=== PATIENT | female | born 1940 | race Two or more races ===

== ENCOUNTER 2018-07-26 13:17 | Outpatient (CLI) | payer OTHER | END 2018-07-26 13:31 | disposition home or self-care (01) | LOC: RAD 501 13:17 | DX: M41.9 Scoliosis, unspecified (principal); M25.571 Pain in right ankle and joints of right foot; M25.572 Pain in left ankle and joints of left foot; M51.36 Other intervertebral disc degeneration, lumbar region; M48.02 Spinal stenosis, cervical region ==

== ENCOUNTER 2018-07-28 11:34 | Outpatient (CLI) | payer OTHER | END 2018-07-28 11:45 | disposition home or self-care (01) | LOC: RAD 501 11:34 | DX: M25.572 Pain in left ankle and joints of left foot (principal) ==

== ENCOUNTER → 2018-09-20 | Outpatient (CLI) | payer OTHER | END | disposition home or self-care (01) | LOC: NUCLEAR 10:00 | DX: M41.9 Scoliosis, unspecified (principal); M48.02 Spinal stenosis, cervical region; M51.26 Other intervertebral disc displacement, lumbar region; M85.80 Other specified disorders of bone density and structure, unspecified site; M81.0 Age-related osteoporosis without current pathological fracture ==

== ENCOUNTER → 2018-09-24 | Outpatient (CLI) | payer OTHER | END | disposition home or self-care (01) | LOC: RAD 501 14:05 | DX: S89.90XA Unspecified injury of unspecified lower leg, initial encounter (principal); R29.6 Repeated falls ==

== ENCOUNTER 2019-07-25 13:38 | Outpatient (CLI) | payer OTHER | END 2019-07-25 14:26 | disposition home or self-care (01) | LOC: RAD 13:38 | DX: M85.80 Other specified disorders of bone density and structure, unspecified site (principal); M41.25 Other idiopathic scoliosis, thoracolumbar region; M80.80XS Other osteoporosis with current pathological fracture, unspecified site, sequela ==